=== PATIENT | female | born 1995 | race Caucasian/White ===

== ENCOUNTER 2017-08-22 12:40 | Emergency (ER) | payer SELFPAY ==
[~2017-08-22] VITALS: Ht 160 cm; Wt 71.7 kg
[2017-08-22 12:52] VITALS: Ht 160 cm; Wt 71.7 kg
[2017-08-22 13:56] LABS: BASOPHIL % 0.3 % (0-2)
[2017-08-22 13:59] LABS: CALCIUM 9.3 mg/dL (8.5-10.1); CARBON DIOXIDE 26.2 mmol/L (21-32); CHLORIDE SERUM 93 mmol/L (98-107); CREATININE SERUM 0.9 mg/dL (0.6-1.0); GFR1 > 60 mL/min; GLUCOSE SERUM 102 mg/dL (74-106); POTASSIUM SERUM 3.1 mmol/L (3.5-5.1); SODIUM SERUM 135 mmol/L (136-145)
[2017-08-22 14:03] LABS: ALBUMIN 4.3 g/dL (3.4-5.0); ALKALINE PHOSPHATASE 76 U/L (46-116); ALT/SGPT 37 U/L (14-59); BILIRUBIN TOTAL 1.32 mg/dL (0.20-1.00); LIPASE 93 IU/L (73-393)
[2017-08-22 14:04] LABS: PLATELET COUNT 458 x10^3mcL (130-400); RED CELL DISTRIBUTION WIDTH 14.7 % (11.5-14.5)
[2017-08-22 14:06] LABS: TOTAL PROTEIN, SERUM 8.7 g/dL (6.4-8.2)
[2017-08-22 14:19] LABS: AST/SGOT 27 U/L (15-37)
[2017-08-22] MEDS ORDERED: PROTONIX40 MG PO (14:45)
[2017-08-22] MEDS ORDERED: ZOF4 PO (14:45)
[2017-08-22 16:47] VITALS: BP 140/96
== END 2017-08-22 16:47 | disposition home or self-care (01) ==
LOC: ED 12:40
PROVIDERS: Emergency Medicine
DX: R10.13 Epigastric pain (principal); Z91.041 Radiographic dye allergy status
CPT/HCPCS: J1630; J1885; J2405; J2550; J3010; J3480; J3490; J7030; Q0092

== ENCOUNTER 2017-12-08 12:59 | Emergency (ER) | payer MEDICAID ==
[~2017-12-08] VITALS: Ht 154.9 cm; Wt 65.8 kg
[~2017-12-08 12:59] MED LIST: PROTONIX40 MG PO; ZOF4 PO
[2017-12-08 13:02] VITALS: Ht 154.9 cm; Wt 65.8 kg
[2017-12-08 13:52] LABS: BASOPHIL % 0.3 % (0-2)
[2017-12-08 13:55] LABS: PLATELET COUNT 418 x10^3mcL (130-400); RED CELL DISTRIBUTION WIDTH 15.5 % (11.5-14.5)
[2017-12-08 14:06] LABS: ALBUMIN 4.9 g/dL (3.4-5.0); ALKALINE PHOSPHATASE 95 U/L (46-116); ALT/SGPT 43 U/L (14-59); AST/SGOT 31 U/L (15-37); BILIRUBIN TOTAL 1.2 mg/dL (0.20-1.00); CALCIUM 9.3 mg/dL (8.5-10.1); CARBON DIOXIDE 24.3 mmol/L (21-32); CHLORIDE SERUM 92 mmol/L (98-107); CREATININE SERUM 1.2 mg/dL (0.6-1.0); GFR1 > 60 mL/min; GLUCOSE SERUM 129 mg/dL (74-106); LIPASE 84 IU/L (73-393); SODIUM SERUM 133 mmol/L (136-145)
[2017-12-08 14:15] LABS: TOTAL PROTEIN, SERUM 9.3 g/dL (6.4-8.2)
[2017-12-08 16:01] VITALS: BP 158/97
== END 2017-12-08 16:17 | disposition home or self-care (01) ==
LOC: ED 12:59
PROVIDERS: Emergency Medicine
DX: F12.188 Cannabis abuse with other cannabis-induced disorder (principal); E87.6 Hypokalemia; Z91.041 Radiographic dye allergy status; E86.0 Dehydration
CPT/HCPCS: C9113; J1630; J1885; J2405; J7030

== ENCOUNTER 2018-02-14 12:30 | Inpatient (IN) | payer OTHER ==
[~2018-02-14] VITALS: Ht 154.9 cm; Wt 66.9 kg
[2018-02-14 12:46] VITALS: Ht 154.9 cm; Wt 66.9 kg
[2018-02-14 13:48] LABS: BASOPHIL % 0.5 % (0-2); PLATELET COUNT 381 x10^3mcL (130-400)
[2018-02-14 13:49] LABS: RED CELL DISTRIBUTION WIDTH 15.2 % (11.5-14.5)
[2018-02-14 13:52] LABS: UA SPECIFIC GRAVITY 1.025 (1.005-1.035); microscopic required? YES; urine erythrocyte NEGATIVE (NEGATIVE)
[2018-02-14 14:07] LABS: CALCIUM 8.7 mg/dL (8.5-10.1); CARBON DIOXIDE 23.9 mmol/L (21-32); CHLORIDE SERUM 106 mmol/L (98-107); CREATININE SERUM 0.8 mg/dL (0.6-1.0); GFR1 > 60 mL/min; GLUCOSE SERUM 96 mg/dL (74-106); POTASSIUM SERUM 3.5 mmol/L (3.5-5.1); SODIUM SERUM 144 mmol/L (136-145)
[2018-02-14 14:11] LABS: ALBUMIN 4.1 g/dL (3.4-5.0); ALKALINE PHOSPHATASE 61 U/L (46-116); ALT/SGPT 15 U/L (14-59); AST/SGOT 10 U/L (15-37); BILIRUBIN TOTAL 0.74 mg/dL (0.20-1.00); LIPASE 111 IU/L (73-393); TOTAL PROTEIN, SERUM 7.8 g/dL (6.4-8.2)
[2018-02-14 14:12] LABS: AMYLASE 162 U/L (25-115)
[2018-02-14] MEDS ORDERED: NOR10T PO (17:27)
[2018-02-14 18:54] VITALS: BP 143/80
[2018-02-14 20:50] LABS: MAGNESIUM 1.9 mg/dL (1.8-2.4); PHOSPHOROUS 1.9 mg/dL (2.5-4.9)
[2018-02-14 20:53] LABS: CHOLESTEROL/HDL RATIO 2.3
[2018-02-14 20:57] LABS: T3 TOTAL 0.96 ng/mL
[2018-02-14 21:00] LABS: FREE T4 1.12 ng/dL (0.76-1.46); FREE THYROXINE INDEX 2.4 ug/dL (1.4-4.5); T4(THYROXINE) 7.5 ug/dL (4.7-13.3)
[2018-02-14 21:03] VITALS: BP 130/66
[2018-02-14 23:46] LABS: AMPHETAMINE QUAL UR NONE DETECTED (See below)
[2018-02-15 06:01] VITALS: BP 112/62
[2018-02-15 08:12] VITALS: BP 119/62
[2018-02-15 15:45] VITALS: BP 119/62
[2018-02-15] MEDS ORDERED: NORCO1 TA2 PO (16:00)
== END 2018-02-15 16:40 | disposition home or self-care (01) | DRG 760 ==
LOC: ED 12:30 → MU 17:31
PROVIDERS: Family Medicine; Specialist
DX: N83.201 Unspecified ovarian cyst, right side (principal); N17.0 Acute kidney failure with tubular necrosis; N39.0 Urinary tract infection, site not specified; I10 Essential (primary) hypertension; Z91.041 Radiographic dye allergy status; Z90.49 Acquired absence of other specified parts of digestive tract; Z83.3 Family history of diabetes mellitus
CPT/HCPCS: 84439; J0696; J1200; J1885; J2270; J2405; J3010; J3490; J7030

== ENCOUNTER 2018-09-08 05:59 | Emergency (ER) | payer MEDICAID ==
[~2018-09-08] VITALS: Ht 154.9 cm; Wt 66.7 kg
[~2018-09-08 05:59] MED LIST changes: +NOR10T PO; +NORCO1 TA2 PO
[2018-09-08 06:02] VITALS: Ht 154.9 cm; Wt 66.7 kg
[2018-09-08 06:32] LABS: BASOPHIL % 0.9 % (0-2); PLATELET COUNT 450 x10^3mcL (130-400); RED CELL DISTRIBUTION WIDTH 14.3 % (11.5-14.5)
[2018-09-08 06:49] LABS: CALCIUM 8.7 mg/dL (8.5-10.1); CARBON DIOXIDE 27.6 mmol/L (21-32); CHLORIDE SERUM 98 mmol/L (98-107); CREATININE SERUM 0.6 mg/dL (0.6-1.0); GFR1 > 60 mL/min; GLUCOSE SERUM 93 mg/dL (74-106); POTASSIUM SERUM 3.6 mmol/L (3.5-5.1); SODIUM SERUM 137 mmol/L (136-145)
[2018-09-08 06:53] LABS: ALBUMIN 4.3 g/dL (3.4-5.0); ALKALINE PHOSPHATASE 72 U/L (46-116); ALT/SGPT 18 U/L (14-59); AMYLASE 92 U/L (25-115); AST/SGOT 33 U/L (15-37); BILIRUBIN TOTAL 1.32 mg/dL (0.20-1.00); LIPASE 84 IU/L (73-393)
[2018-09-08 06:58] LABS: TOTAL PROTEIN, SERUM 8.7 g/dL (6.4-8.2)
[2018-09-08 07:58] VITALS: BP 142/79
[2018-09-08 08:07] LABS: AMPHETAMINE QUAL UR NONE DETECTED (See below)
[2018-09-08 08:14] LABS: UA SPECIFIC GRAVITY >=1.030 (1.005-1.035); microscopic required? YES; urine erythrocyte 1+ (NEGATIVE)
== END 2018-09-08 09:37 | disposition home or self-care (01) ==
LOC: ED 05:59
PROVIDERS: Emergency Medicine
DX: R10.13 Epigastric pain (principal); F12.90 Cannabis use, unspecified, uncomplicated; N39.0 Urinary tract infection, site not specified; R11.10 Vomiting, unspecified; N83.209 Unspecified ovarian cyst, unspecified side; Z90.49 Acquired absence of other specified parts of digestive tract; Z91.041 Radiographic dye allergy status
CPT/HCPCS: J0696; J1630; J2060